=== PATIENT | female | born 1990 | race African-American/Black ===

== ENCOUNTER 2017-09-29 18:01 | Emergency (ER) | payer OTHER ==
[~2017-09-29] VITALS: Ht 167.6 cm; Wt 117.9 kg
[~2017-09-29 18:01] MED LIST: ACETAZOLAMIDE250 M2 PO; AUGMENTIN 875875 MG PO; BENADRYL25 MG PO; FLONASE 0.05%50 MCG NASAL; HIBICLENS120 ML TP; IBUPROFEN200 M1 PO; MAGIC MOUTHWASH SWISH&SPIT
[2017-09-29 18:08] VITALS: BP 138/95
[2017-09-29] MEDS ORDERED: TRAMADOL 50 MG50 MG PO (18:33)
== END 2017-09-29 19:00 | disposition home or self-care (01) ==
LOC: ER 18:01
DX: L73.2 Hidradenitis suppurativa (principal)

== ENCOUNTER 2019-11-01 10:13 | Emergency (ER) | payer BC ==
[~2019-11-01] VITALS: Ht 172.7 cm; Wt 115.8 kg
[~2019-11-01 10:13] MED LIST changes: +TRAMADOL 50 MG50 MG PO
[2019-11-01 11:04] LABS: URINE BLOOD 2+ (Negative); URINE CLARITY SL CLOUDY; URINE COLOR YELLOW; URINE GLUCOSE-RANDOM* NEGATIVE (Negative); URINE KETONES NEGATIVE (Negative); URINE NITRITE-REFLEX NEGATIVE (Negative); URINE PROTEIN (DIPSTICK) TRACE (Negative); URINE SPECIFIC GRAVITY >= 1.030 (1.005-1.035); URINE UROBILINOGEN 0.2 E.U./dl (0.2-1.0)
[2019-11-01 11:08] LABS: URINE LEUKOCYTES-REFLEX 2+ (Negative)
[2019-11-01 11:09] LABS: ICTOTEST (BILI CONFIRMATORY) Negative (Negative)
[2019-11-01 11:10] LABS: URINE BILIRUBIN NEGATIVE (Negative)
[2019-11-01 11:11] LABS: HEMATOCRIT 32.6 % (37.0-47.0); HEMOGLOBIN 9.9 gm/dL (12.0-15.0); MCH 20.9 pg (26.0-34.0); MCHC 30.4 g/dL (28.0-37.0); MCV 68.7 fL (80.0-100.0); PLATELET COUNT 548 thou/uL (150-400); RBC 4.74 mil/uL (4.20-5.00); RDW 20.1 % (10.5-14.5); WBC 14.5 thou/uL (4.0-11.0)
[2019-11-01 11:15] LABS: CASTS None Seen /LPF (None Seen); CRYSTALS None Seen /LPF (None Seen); SQUAMOUS >10 Many /LPF (0-3)
[2019-11-01 11:17] LABS: URINE RBC 3-10 Few /HPF (0-2)
[2019-11-01 11:19] LABS: CALCIUM 9.4 mg/dL (8.5-10.1); CREATININE 0.7 mg/dL (0.6-1.0); POTASSIUM 3.6 mmol/L (3.5-5.1)
[2019-11-01 11:34] LABS: ALBUMIN 2.8 g/dL (3.4-5.0); TOTAL BILIRUBIN 0.4 mg/dL (<0.1-1.0)
[2019-11-01 11:59] LABS: ABSOLUTE NEUTROPHILS 10.2 thou/uL (1.4-8.2); ANISOCYTOSIS 2+; HYPOCHROMASIA 2+; MICROCYTES 2+
[2019-11-01] MEDS ORDERED: FLAGYL500 M1 PO (15:14)
[2019-11-01] MEDS ORDERED: CIPROFLOXACIN500 M1 PO (15:14)
[2019-11-01] MEDS ORDERED: ZOFRAN ODT4 MG PO (15:14)
[2019-11-01] MEDS ORDERED: ULTRAM 50MG TAB50 MG PO (15:14)
[2019-11-01 15:31] VITALS: BP 127/82
== END 2019-11-01 15:32 | disposition home or self-care (01) ==
LOC: ER 10:13
PROVIDERS: Emergency Medicine
DX: K57.92 Diverticulitis of intestine, part unspecified, without perforation or abscess without bleeding (principal); L73.2 Hidradenitis suppurativa; R19.00 Intra-abdominal and pelvic swelling, mass and lump, unspecified site; I10 Essential (primary) hypertension

== ENCOUNTER 2020-01-04 14:48 | Emergency (ER) | payer BC ==
[~2020-01-04] VITALS: Ht 172.7 cm; Wt 114.8 kg
[~2020-01-04 14:48] MED LIST changes: +CIPROFLOXACIN500 M1 PO; +FLAGYL500 M1 PO; +ULTRAM 50MG TAB50 MG PO; +ZOFRAN ODT4 MG PO
[2020-01-04] MEDS ORDERED: NAPROSYN500 MG PO (17:12)
[2020-01-04] MEDS ORDERED: NORCO 5-325 TA1 EAC2 PO (17:12)
[2020-01-04 17:21] VITALS: BP 138/78
== END 2020-01-04 17:23 | disposition home or self-care (01) ==
LOC: ER 14:48
DX: L02.216 Cutaneous abscess of umbilicus (principal)

== ENCOUNTER 2020-06-16 20:49 | Emergency (ER) | payer BC ==
[~2020-06-16] VITALS: Ht 172.7 cm; Wt 119.8 kg
[~2020-06-16 20:49] MED LIST changes: +NAPROSYN500 MG PO; +NORCO 5-325 TA1 EAC2 PO
[2020-06-16] MEDS ORDERED: DOXYCYCLINE 10100 M2 PO (21:00)
[2020-06-16] MEDS ORDERED: SODIUM SULFACE TOP (21:00)
[2020-06-16] MEDS ORDERED: CLINDAMYCIN 1%60 M1 TOP (21:01)
[2020-06-16] MEDS ORDERED: MUPIROCIN15 GM TOP (21:01)
[2020-06-16 21:32] VITALS: BP 151/89
== END 2020-06-16 21:33 | disposition home or self-care (01) ==
LOC: ER 20:49
DX: L52 Erythema nodosum (principal); Z79.2 Long term (current) use of antibiotics; Z79.899 Other long term (current) drug therapy

== ENCOUNTER 2020-12-16 08:30 | Emergency (ER) | payer BC ==
[~2020-12-16] VITALS: Ht 172.7 cm; Wt 122.5 kg
[~2020-12-16 08:30] MED LIST changes: +CLINDAMYCIN 1%60 M1 TOP; +DOXYCYCLINE 10100 M2 PO; +MUPIROCIN15 GM TOP; +SODIUM SULFACE TOP
[2020-12-16 09:30] VITALS: BP 147/79
[2020-12-16] MEDS ORDERED: ZANAFLEX4 MG PO (09:42)
[2020-12-16] MEDS ORDERED: NAPROSYN500 MG PO (09:42)
== END 2020-12-16 09:30 | disposition home or self-care (01) ==
LOC: ER 08:30
DX: M54.5 Low back pain (principal); L02.416 Cutaneous abscess of left lower limb; L73.2 Hidradenitis suppurativa; Z79.899 Other long term (current) drug therapy